=== PATIENT | male | born 1950 | race African-American/Black ===

== ENCOUNTER 2020-09-25 22:28 | Inpatient (IN) | payer MEDICARE, OTHER ==
[~2020-09-25] VITALS: Ht 185.4 cm; Wt 85.0 kg
[2020-09-25] MEDS ORDERED: HEPARIN SODIUM (PORCINE) 5000 UNITS/ML 1ML VIAL IV ONE (22:45)
[2020-09-25] MEDS ORDERED: diphenhdrAMINE HCL 50 MG/1 ML VL IV ONE (23:00)
[2020-09-25] MEDS ORDERED: CLOPIDOGREL BISULFATE 75 MG TAB PO ONE (23:00)
[2020-09-25] MEDS ORDERED: MORPHINE SULFATE 4 MG/ML SYR/VIAL IV ONE (23:00)
[2020-09-25] MEDS ORDERED: ONDANSETRON HCL 4 MG/2 ML VIAL IV ONE (23:00)
[2020-09-25] MEDS ORDERED: diphenhdrAMINE HCL 50 MG/1 ML VL IV PRN (23:00)
[2020-09-25] MEDS ORDERED: diphenhdrAMINE HCL 50 MG/1 ML VL ONE ×2 (23:00→23:50)
[2020-09-25] MEDS ORDERED: METOPROLOL TARTRATE 1MG/1ML-5ML VIAL IV ONE ×2 (23:07→23:15)
[2020-09-25] MEDS ORDERED: ANGIOMAX 250 MG VIAL IV ONE (23:20)
[2020-09-25] MEDS ORDERED: VERAPAMIL 2.5MG/ML INJ 2ML VIAL IV ONE (23:21)
[2020-09-25] MEDS ORDERED: SODIUM CHL 0.9% 0 ML ONE (23:21)
[2020-09-25] MEDS ORDERED: MIDAZOLAM HCL 1MG/1ML-2 ML VIAL ONE (23:21)
[2020-09-25] MEDS ORDERED: fentaNYL CITRATE 100 MCG/2 ML VL ONE (23:21)
[2020-09-25] MEDS ORDERED: HEPARIN SODIUM (PORCINE) 5000 UNITS/ML 1ML VIAL ONE (23:21)
[2020-09-25 23:33] LABS: Basophils # (auto) 0.1 10 ^3/uL (0-0.2); Basophils % (auto) 1.7 % (0.0-2.0); Eosinophils # (auto) 0.1 10 ^3/uL (0-0.8); Eosinophils % (auto) 1.4 % (0.0-7.0); Hematocrit 45.8 % (41.0-53.0); Hemoglobin 15.4 g/dL (13.5-17.5); Lymphocytes # (auto) 3.7 10 ^3/uL (0.4-5.4); Lymphocytes % (auto) 44.5 % (10.0-50.0); Mean Corpuscular Hemoglobin 32.4 pg (28.0-32.0); Mean Corpuscular Hgb Conc. 33.6 g/dL (32.0-36.0); Mean Corpuscular Volume 96.5 fL (80.0-100.0); Monocytes # (auto) 0.7 10 ^3/uL (0-1.3); Monocytes % (auto) 8.2 % (0.0-12.0); Neutrophils # (auto) 3.7 10 ^3/uL (1.6-8.6); Neutrophils % (auto) 44.2 % (37.0-80.0); Nucleated Red Blood Cells % 0.1 %; Platelet Count (auto) 124 10^3/uL (140-450); Red Blood Cells 4.75 10^6/uL (4.5-5.90); Red Cell Distribution Width 16.5 % (11.8-14.3); White Blood Cell 8.3 10^3/uL (4.4-10.8)
[2020-09-25 23:48] LABS: Albumin 4.3 g/dL (3.4-5.0); BUN/Creatinine Ratio 12.6; Calcium 9.3 mg/dL (8.5-10.1); Magnesium 2.2 mg/dL (1.6-2.6); Potassium 4.3 mmol/L (3.5-5.1)
[2020-09-25] MEDS ORDERED: methylPREDNISolone SOD SUCC 125 MG/2 ML VL ONE (23:49)
[2020-09-25] MEDS ORDERED: FAMOTIDINE (10MG/ML) 2ML VL IV ONE (23:50)
[2020-09-25 23:54] LABS: Bilirubin, Total 0.6 mg/dL (0.2-1.0); INR 1.13 (0.9-1.15); Partial Thromboplastin Time 26.3 sec (23.0-31.2); Total Protein 8.4 g/dL (6.4-8.2)
[2020-09-26] MEDS ORDERED: ACETAMINOPHEN 500 MG TAB PO PRN (00:30)
[2020-09-26] MEDS ORDERED: MORPHINE SULF INJ 2 MG/ML SYRINGE 1ML IV PRN (00:30)
[2020-09-26] MEDS ORDERED: FUROSEMIDE 20 MG TAB PO SCH (00:30)
[2020-09-26] MEDS ORDERED: NITROGLYCERIN 0.4 MG SL TAB SL PRN (00:30)
[2020-09-26 01:59] VITALS: BP 147/94
[2020-09-26] MEDS ORDERED: ONDANSETRON HCL 4 MG/2 ML VIAL IV PRN (02:00)
[2020-09-26] MEDS: HYDROmorphone HCL 2 MG/ML VL IV SCH ×4 (02:00→18:01)
[2020-09-26] MEDS: SODIUM CHLOR 0.9% PF (SALINE LOCK) 10ML VIAL/SYR IV SCH ×3 (06:00→22:03)
[2020-09-26 08:00] VITALS: BP 144/103
[2020-09-26] MEDS ORDERED: LISINOPRIL 5 MG TAB PO SCH (10:00)
[2020-09-26] MEDS: FUROSEMIDE 40 MG/4 ML VIAL IV SCH (10:10)
[2020-09-26] MEDS: CARVEDILOL 3.125 MG TAB PO SCH ×2 (10:11→22:02)
[2020-09-26] MEDS: PANTOPRAZOLE 40 MG TAB PO SCH ×2 (10:11→22:03)
[2020-09-26 11:44] LABS: Urine Bacteria NONE SEEN /hpf (None Seen); Urine Blood Negative /uL (Negative); Urine Hyaline Cast MANY /lpf (0 - 2); Urine Specific Gravity 1.034 (1.001-1.035); Urine WBC 1 /hpf (0 - 3)
[2020-09-26 12:22] LABS: Amphetamine Screen, Urine NEGATIVE (NEGATIVE); Barbiturate Scree,Urine NEGATIVE (NEGATIVE); Benzodiazephine Screen, Urine POSITIVE (NEGATIVE); Cannabinoid Screen, Urine POSITIVE (NEGATIVE); Cocaine Screen, Urine NEGATIVE (NEGATIVE)
[2020-09-26 12:35] LABS: Alcohol, Urine < 3.0 mg/dL (0-10); Opiate Scree,Urine POSITIVE (NEGATIVE); Phencyclidine Screen, Urine NEGATIVE (NEGATIVE)
[2020-09-26 14:58] LABS: BUN/Creatinine Ratio 13.5; Calcium 9.7 mg/dL (8.5-10.1)
[2020-09-26 15:32] LABS: Potassium 5.6 mmol/L (3.5-5.1)
[2020-09-26 16:00] VITALS: BP 126/87
[2020-09-26] MEDS ORDERED: InsuLIN REG 1unit/0.01ml Soln (100units/ml) IV ONE (16:30)
[2020-09-26] MEDS ORDERED: SODIUM ZIRCONIUM CYCL 10 GM PAK PO ONE (16:30)
[2020-09-26] MEDS ORDERED: SODIUM BICARBONATE 8.4 % INJ 50ML VIAL IV ONE (16:30)
[2020-09-26] MEDS ORDERED: DEXTROSE (50%) 50ML SYRG IV ONE (16:30)
[2020-09-26] MEDS ORDERED: CALCIUM GLUC 4.65meq/50ml D5AE 50 ML IV ONE (16:30)
[2020-09-26 22:00] VITALS: BP 121/71
[2020-09-26] MEDS: HYDROcodone-ACET 5/325MG TAB PO PRN (22:11)
[2020-09-27] VITALS: BP 121/71
[2020-09-27] MEDS: HYDROmorphone HCL 2 MG/ML VL IV SCH ×4 (02:04→14:00)
[2020-09-27 05:00] VITALS: BP 143/88
[2020-09-27] MEDS: SODIUM CHLOR 0.9% PF (SALINE LOCK) 10ML VIAL/SYR IV SCH ×2 (05:37→14:00)
[2020-09-27 07:50] LABS: BUN/Creatinine Ratio 20.6; Calcium 9.7 mg/dL (8.5-10.1); Potassium 4.8 mmol/L (3.5-5.1)
[2020-09-27 08:13] VITALS: BP 114/76
[2020-09-27] MEDS: CARVEDILOL 3.125 MG TAB PO SCH (10:00)
[2020-09-27] MEDS: FUROSEMIDE 40 MG/4 ML VIAL IV SCH (10:00)
[2020-09-27] MEDS: PANTOPRAZOLE 40 MG TAB PO SCH (10:00)
[2020-09-27] MEDS ORDERED: SODIUM ZIRCONIUM CYCL 10 GM PAK PO SCH (10:00)
[2020-09-27] MEDS ORDERED: CARV6.2551 PO (11:28)
[2020-09-27] MEDS ORDERED: LISI-646 PO (11:28)
[2020-09-27] MEDS ORDERED: SPIR25TA8 PO (11:28)
[2020-09-27] MEDS ORDERED: FURO40TA4 PO (11:28)
[2020-09-27] MEDS ORDERED: ROSU20TA14 PO (11:28)
[2020-09-27 13:13] LABS: Basophils # (auto) 0.1 10 ^3/uL (0-0.2); Basophils % (auto) 0.4 % (0.0-2.0); Eosinophils # (auto) 0 10 ^3/uL (0-0.8); Eosinophils % (auto) 0.1 % (0.0-7.0); Hemoglobin 14.2 g/dL (13.5-17.5); Lymphocytes # (auto) 2.3 10 ^3/uL (0.4-5.4); Lymphocytes % (auto) 19.1 % (10.0-50.0); Mean Corpuscular Hemoglobin 32.2 pg (28.0-32.0); Mean Corpuscular Volume 97.6 fL (80.0-100.0); Monocytes # (auto) 1.1 10 ^3/uL (0-1.3); Monocytes % (auto) 8.8 % (0.0-12.0); Neutrophils # (auto) 8.5 10 ^3/uL (1.6-8.6); Neutrophils % (auto) 71.6 % (37.0-80.0); Nucleated Red Blood Cells % 0.3 %; Platelet Count (auto) 104 10^3/uL (140-450); Red Cell Distribution Width 16.4 % (11.8-14.3)
[2020-09-27] MEDS: HYDROcodone-ACET 5/325MG TAB PO PRN (14:25)
[2020-09-27 14:58] VITALS: BP 110/82
[2020-10-09] MEDS ORDERED: OXYC-902 PO (18:43)
== END 2020-09-27 15:50 | disposition home or self-care (01) | DRG 280 ==
LOC: EDBD 22:28 → ER 22:31 → TELE 22:32 → ER 23:37 → TELE-WESTW 09-26 01:13 → TELE-CENTR 09-26 14:45
PROVIDERS: ADMIT Specialist; ATTEND Specialist
PROC: 4A023N8 Measurement of Cardiac Sampling and Pressure, Bilateral, Percutaneous Approach (ICD-10-PCS; principal; 2020-09-26)
PROC: B2111ZZ Fluoroscopy of Multiple Coronary Arteries using Low Osmolar Contrast (ICD-10-PCS; 2020-09-26)
PROC: B2151ZZ Fluoroscopy of Left Heart using Low Osmolar Contrast (ICD-10-PCS; 2020-09-26)
PROC: B41F1ZZ Fluoroscopy of Right Lower Extremity Arteries using Low Osmolar Contrast (ICD-10-PCS; 2020-09-26)
DX: I21.19 ST elevation (STEMI) myocardial infarction involving other coronary artery of inferior wall (principal); I50.21 Acute systolic (congestive) heart failure; I48.20 Chronic atrial fibrillation, unspecified; I42.9 Cardiomyopathy, unspecified; J44.9 Chronic obstructive pulmonary disease, unspecified; F17.200 Nicotine dependence, unspecified, uncomplicated; I11.0 Hypertensive heart disease with heart failure; I37.1 Nonrheumatic pulmonary valve insufficiency; Z91.013 Allergy to seafood; Z88.5 Allergy status to narcotic agent; Z80.9 Family history of malignant neoplasm, unspecified; Z20.822 Contact with and (suspected) exposure to COVID-19
CPT/HCPCS: 36415; 71045; 80048; 80053; 80307; 81001; 82962; 83735; 83880; 84484; 85025; 85379; 85610; 85730; 87426; 93005; 93306; 93454; 96365; 96375; 99152; 99153; 99291; C1751; G0378; J0610; J1815; J2250; J2405; J3490

== ENCOUNTER 2021-06-09 11:57 | Inpatient (IN) | payer MEDICARE, OTHER ==
[~2021-06-09] VITALS: Ht 188 cm; Wt 84.7 kg
[~2021-06-09 11:57] MED LIST: CARV6.2551 PO; FURO40TA4 PO; ROSU20TA14 PO; SPIR25TA8 PO
[2021-06-09] MEDS ORDERED: ASPirin 325 MG TAB PO ONE (12:30)
[2021-06-09 13:15] LABS: Basophils # (auto) 0 10 ^3/uL (0-0.2); Basophils % (auto) 0.5 % (0.0-2.0); Eosinophils # (auto) 0.1 10 ^3/uL (0-0.8); Eosinophils % (auto) 0.6 % (0.0-7.0); Hematocrit 43.9 % (41.0-53.0); Hemoglobin 15.1 g/dL (13.5-17.5); Lymphocytes # (auto) 2.1 10 ^3/uL (0.4-5.4); Lymphocytes % (auto) 22.7 % (10.0-50.0); Mean Corpuscular Hemoglobin 33.4 pg (28.0-32.0); Mean Corpuscular Hgb Conc. 34.4 g/dL (32.0-36.0); Mean Corpuscular Volume 97.2 fL (80.0-100.0); Monocytes # (auto) 1.4 10 ^3/uL (0-1.3); Neutrophils # (auto) 5.5 10 ^3/uL (1.6-8.6); Neutrophils % (auto) 61.2 % (37.0-80.0); Nucleated Red Blood Cells % 0.1 %; Red Blood Cells 4.51 10^6/uL (4.5-5.90); Red Cell Distribution Width 14.8 % (11.8-14.3); White Blood Cell 9.1 10^3/uL (4.4-10.8)
[2021-06-09 13:21] LABS: Albumin 3.9 g/dL (3.4-5.0); Anion Gap 6 (5-15); Blood Urea Nitrogen 23 mg/dL (7-18); Calcium 9.5 mg/dL (8.5-10.1); Carbon Dioxide 25 mmol/L (21-32); Chloride 104 mmol/L (98-107); Glucose 96 mg/dL (74-106); Magnesium 2.3 mg/dL (1.6-2.6); Potassium 4.2 mmol/L (3.5-5.1); Sodium 135 mmol/L (136-145)
[2021-06-09 13:26] LABS: Alanine Aminotransferase 31 U/L (16-61); Alkaline Phosphatase 81 U/L (45-117); Aspartate Aminotransferase 22 U/L (15-37); BUN/Creatinine Ratio 15.4; Bilirubin, Total 0.9 mg/dL (0.2-1.0); GFR African American 59 mL/min; GFR Non-African American 49 mL/min; Total Protein 8.2 g/dL (6.4-8.2)
[2021-06-09] MEDS ORDERED: MORPHINE SULFATE INJECTION 2 MG/ML SYRG IV PRN (15:00)
[2021-06-09] MEDS ORDERED: NITROGLYCERIN 0.4 MG SL TAB SL PRN (15:00)
[2021-06-09] MEDS ORDERED: KETOROLAC TROMETH 30 MG/ML 1ML VIAL IV ONE (15:30)
[2021-06-09 15:51] LABS: INR 1.22 (0.9-1.15); Partial Thromboplastin Time 30.5 sec (23.6-33.0)
[2021-06-09 15:55] LABS: Amphetamine Screen, Urine NEGATIVE (NEGATIVE); Barbiturate Scree,Urine NEGATIVE (NEGATIVE); Benzodiazephine Screen, Urine NEGATIVE (NEGATIVE); Cannabinoid Screen, Urine POSITIVE (NEGATIVE); Cocaine Screen, Urine NEGATIVE (NEGATIVE)
[2021-06-09 16:02] LABS: Opiate Scree,Urine NEGATIVE (NEGATIVE); Phencyclidine Screen, Urine NEGATIVE (NEGATIVE)
[2021-06-09 16:03] LABS: Alcohol, Urine < 3.0 mg/dL (0-10)
[2021-06-09] MEDS: FUROSEMIDE 20 MG/2 ML VIAL IV SCH (17:57)
[2021-06-09] MEDS: POTASSIUM CHLORIDE 8 MEQ TAB PO SCH (21:08)
[2021-06-09] MEDS: OXYCODONE W/ ACETAMINOPHEN 5/325MG TABLET PO PRN (21:23)
[2021-06-09] MEDS: CARVEDILOL 3.125 MG TAB PO SCH (21:50)
[2021-06-09 22:00] VITALS: BP 103/63
[2021-06-09] MEDS ORDERED: ATORVASTATIN 20 MG TAB PO SCH (22:00)
[2021-06-10 05:00] VITALS: BP 106/52
[2021-06-10] MEDS: FUROSEMIDE 20 MG/2 ML VIAL IV SCH (06:02)
[2021-06-10] MEDS: CARVEDILOL 3.125 MG TAB PO SCH (09:54)
[2021-06-10] MEDS: POTASSIUM CHLORIDE 8 MEQ TAB PO SCH (09:54)
[2021-06-10] MEDS ORDERED: SPIRONOLACTONE 25 MG TAB PO SCH (10:00)
[2021-06-10] MEDS: OXYCODONE W/ ACETAMINOPHEN 5/325MG TABLET PO PRN (11:10)
== END 2021-06-10 11:42 | disposition left against medical advice (07) | DRG 309 ==
LOC: ER 11:57 → TELE 14:59 → TELE-WESTW 20:38
PROVIDERS: ADMIT Specialist; ATTEND Specialist
DX: I48.21 Permanent atrial fibrillation (principal); I50.22 Chronic systolic (congestive) heart failure; I11.0 Hypertensive heart disease with heart failure; E78.5 Hyperlipidemia, unspecified; G89.29 Other chronic pain; M25.512 Pain in left shoulder; M25.511 Pain in right shoulder; Z20.822 Contact with and (suspected) exposure to COVID-19; J44.9 Chronic obstructive pulmonary disease, unspecified; I42.0 Dilated cardiomyopathy; Z87.891 Personal history of nicotine dependence; I25.2 Old myocardial infarction; Z91.013 Allergy to seafood; Z95.810 Presence of automatic (implantable) cardiac defibrillator; Z79.899 Other long term (current) drug therapy; Z53.29 Procedure and treatment not carried out because of patient's decision for other reasons
CPT/HCPCS: 36415; 71045; 80053; 80307; 83735; 83880; 84443; 84484; 85025; 85610; 85730; 87426; 93005; 96374; 96375; G0378; J1885